=== PATIENT | male | born 1950 | race Caucasian/White ===

== ENCOUNTER 2016-08-02 17:52 | Emergency (ER) | payer MEDICARE, OTHER ==
[~2016-08-02] VITALS: Ht 193 cm; Wt 108.9 kg
[2016-08-02] MEDS ORDERED: FAMOTIDINE 20MG/2ML IV (PEPCID) IVP ONE (18:15)
[2016-08-02] MEDS ORDERED: methylPREDNISolone 125 MG (Solu-MEDROL) VIAL IVP ONE (18:15)
[2016-08-02] MEDS ORDERED: diphenhydrAMINE 50 MG/ML INJ (BENADRYL) IVP ONE (18:15)
[2016-08-02] MEDS ORDERED: METO-270 PO (18:17)
[2016-08-02] MEDS ORDERED: FOLI20CA PO (18:17)
[2016-08-02] MEDS ORDERED: ASPI-586 PO (18:17)
[2016-08-02] MEDS ORDERED: STATIN PO (18:17)
--- NOTE | 2016-08-02 18:53 | ED General ---
General Chief Complaint: Allergic Reaction Stated Complaint: HIVES Nursing Triage Note: PT CO OF HIVES SINCE 1700 YESTERDAY UNKNOWN REASON WHY, HAS TAKEN BENADRYL,CLAMINE LOTION, SODA AND VINEGAR BATH Nursing Sepsis Screen: No Definite Risk Source of Information: Patient Exam Limitations: No Limitations History of Present Illness Time Seen by Provider: 18:02 Initial Comments this 66-year-old gentleman presents to the emergency room with widespread hives since yesterday. He is unsure of the exposure that caused the reaction. He reports multiple possible exposures.He reports spraying some home defense pesticide spray at his house. He also has wrapped old carpet in plastic. He also ate a bowl of chili just prior to onset of hives. He is uncertain if any of these exposures caused them. He has taken multiple doses of Benadryl at home today without much improvement. His hives remain intensely pruritic. His last dose of Benadryl was about 3 hours ago. He has also tried using topical baking soda, vinegar, hydrocortisone cream, and calamine lotion. He denies use of any JENNIFER inhibitors or ARBS. He denies any throat swelling, tongue swelling, or difficulty breathing. Allergies and Home Medications Allergies Coded Allergies: No Known Drug Allergies (Unverified , 08/02/16) Home Medications Unknown Dose PO DAILY (Reported) Aspirin 81 Mg Tablet.dr 81 MG PO DAILY (Reported) Folic Acid 20 Mg Capsule Unknown Dose PO DAILY (Reported) Metoprolol Succinate 25 Mg Tab.er.24h 25 MG PO BID (Reported) Prednisone 10 Mg Tab #8 10 MG PO BID Prescribed by: WILLIAM WEINSTEIN on 08/02/161911 Constitutional: no symptoms reported EENTM: no symptoms reported Respiratory: no symptoms reported Cardiovascular: no symptoms reported Gastrointestinal: no symptoms reported Genitourinary: no symptoms reported Musculoskeletal: no symptoms reported Skin: see HPI Psychiatric/Neurological: No Symptoms Reported Hematologic/Lymphatic: No Symptoms Reported Past Toeirwm-Yyyphf-Bzbtej Hx Patient Social History Alcohol Use: Denies Use Recreational Drug Use: No Smoking Status: Never a Smoker Recent Foreign Travel: No Contact w/Someone Who Travel: No Recent Infectious Disease Expo: No Recent Hopitalizations: No Physical Abuse Screen: No Sexual Abuse: No Seasonal Allergies Seasonal Allergies: No Surgeries HX Surgeries: Yes Surgeries: Abdominal (partial colectomy), CABG Respiratory Hx Respiratory Disorders: No Cardiovascular Hx Cardiac Disorders: Yes Cardiac Disorders: Coronary Artery Disease, Hypertension Neurological Hx Neurological Disorders: No Reproductive System Hx Reproductive Disorders: No Genitourinary Hx Genitourinary Disorders: No Gastrointestinal Hx Gastrointestinal Disorders: No Musculoskeletal Hx Musculoskeletal Disorders: No Endocrine Hx Endocrine Disorders: No HEENT HX ENT Disorders: No Cancer Hx Cancer: Yes Cancer: Colon Psychosocial Hx Psychiatric Problems: No Integumentary HX Skin/Integumentary Disorder: No Family Medical History Significant Family History: Heart Disease, Diabetes Physical Exam Vital Signs Vital Sign - Last 12Hours 08/02/16 17:55 Temp 97.9 Pulse 84 Resp 18 B/P 168/121 Pulse Ox 99 Capillary Refill : Less Than 3 Seconds General Appearance: No Apparent Distress WD/WN HEENT: PERRL/EOMI Normal ENT Inspection Pharynx Normal Neck: Normal Inspection Respiratory: Lungs Clear Normal Breath Sounds No Accessory Muscle Use No Respiratory Distress Cardiovascular: Regular Rate, Rhythm No Edema No Murmur Gastrointestinal: Non Tender Soft Extremity: Normal Inspection No Pedal Edema Neurologic/Psychiatric: Alert Oriented x3 No Motor/Sensory Deficits Normal 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/Affect 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 II-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 Norm as Tested Skin: Warm/Dry Rash (large patches of hives scattered throughout the body) Progress/Results/Core Measures Results/Orders My Orders Orders-WILLIAM ARBOLEDA MD Diphenhydramine Injection (Benadryl Inje (08/02/16 18:15) Famotidine Injection (Pepcid Injection) (08/02/16 18:15) Methylprednisolone Sod Succ (Solu-Medrol (08/02/16 18:15) Monitor-Rhythm Ecg Trace Only (08/02/16 18:44) Medications Given in ED Current Medications Medications Dose Ordered Sig/Lucia Route Start Time Stop Time Status Last Admin Dose Admin Diphenhydramine HCl 25 mg ONCE ONCE IVP 08/02/16 18:15 08/02/16 18:16 DC 08/02/16 18:20 25 MG Famotidine 20 mg ONCE ONCE IVP 08/02/16 18:15 08/02/16 18:16 DC 08/02/16 18:20 20 MG Methylprednisolone Sodium Succinate 125 mg ONCE ONCE IVP 08/02/16 18:15 08/02/16 18:16 DC 1/14/17 18:20 125 MG Vital Signs/I&O Vital Sign - Last 12Hours 08/02/16 08/02/16 17:55 19:05 Temp 97.9 Pulse 84 87 Resp 18 18 B/P 168/121 Pulse Ox 99 99 Blood Pressure Mean: 137 Progress Note #1: Time: 18:52 Progress Note Hives are improving but his blood pressure is still rather elevated. Present blood pressure is 196/128. Patient reports this is white coat hypertension and happens when he goes to the doctor's office or the dentist. He reports his systolic blood pressure last week at home was 130. Patient has been asked to rest in the exam room while we monitor his blood pressure a little longer. Patient requested that we evaluate his cardiac rhythm. He was placed on the monitoring manager and found to be in sinus rhythm with frequent PVCs. There was no chest pain associated with his PVCs. Progress Note #2: Progress Note blood pressure improved a short time later without any further treatment. Patient was dismissed home in stable condition with improvement in hives. Patient has had problems with side effects of prednisone in the past. For this reason a low dose of 10 mg twice a day was prescribed. patient was encouraged to follow-up with his floor layer. Departure Impression Impression: Primary Impression: Hives Additional Impressions: PVCs (premature ventricular contractions) Hypertensive urgency Disposition: 01 HOME, SELF-CARE Condition: Improved Departure-Patient Inst. Referrals: CHRISTIAN WEINSTEIN MD (PCP/Family) Primary Care Physician Patient Instructions: Hives Add. Discharge Instructions: You may take Benadryl or generic diphenhydramine up to 50 mg every 4 hours as needed for itching and hives. Use prednisone as prescribed to prevent rebound hives over the next several days. Also use Pepcid or generic famotidine 20 mg twice daily for the next several days as well. If symptoms worsen, return to the emergency room. If you develop difficulty breathing or swelling of the tongue or throat presented to the emergency room as soon as possible or call 911. Evaluate your exposures for possible triggers and avoid those triggers in the future. Follow-up with your primary care provider and your floor layer as soon as possible regarding her PVCs and high blood pressure. You'll likely need adjustment to your medications. If your blood pressure remains high (top number greater than 160 or bottom number greater than 90), then increase your metoprolol to 50 mg twice daily. All discharge instructions reviewed with patient and/or family. Voiced understanding. Scripts Prednisone 10 Mg Tab10 Mg PO BID #8 TAB Prov:WILLIAM ARBOLEDA MD 08/02/16 WILLIAM ARBOLEDA MD Aug 02, 2016 18:53
[2016-08-02 19:05] VITALS: BP 170/106
[2016-08-02] MEDS ORDERED: PRD10T PO (19:12)
== END 2016-08-02 19:34 | disposition home or self-care (01) ==
LOC: EDUNIT# 17:52 → ER 17:53
DX: T78.40XA Allergy, unspecified, initial encounter (principal); L50.9 Urticaria, unspecified; I49.3 Ventricular premature depolarization; I16.0 Hypertensive urgency; Z79.82 Long term (current) use of aspirin; Z79.899 Other long term (current) drug therapy
CPT/HCPCS: 93041; 96374; 96375

== ENCOUNTER 2019-07-05 12:02 | Outpatient (CLI) | payer MEDICARE, OTHER ==
[~2019-07-05] VITALS: Ht 190.5 cm; Wt 108.5 kg
[~2019-07-05 12:02] MED LIST: ASPI-586 PO; FOLI20CA PO; METO-387 PO; PRD10T PO; STATIN PO
[2019-07-05] MEDS ORDERED: AMLO5TAB9 PO (12:20)
[2019-07-05] MEDS ORDERED: CARV12.53 PO (12:20)
[2019-07-05] MEDS ORDERED: ATOR40TA70 PO (12:20)
[2019-07-05 13:01] LABS: BASOPHILS % (AUTO) 0 % (0-10); EOSINOPHILS # (AUTO) 0.3 10^3/uL (0.0-0.3); EOSINOPHILS % (AUTO) 4 % (0-10); HEMATOCRIT 43 % (40-54); HEMOGLOBIN 15.2 G/DL (13.3-17.7); LYMPHOCYTES # (AUTO) 2.2 X 10^3 (1.0-4.0); LYMPHOCYTES % (AUTO) 31 % (12-44); MEAN CORPUSCULAR HEMOGLOBIN 31 PG (25-34); MEAN CORPUSCULAR HGB CONC 36 G/DL (32-36); MEAN CORPUSCULAR VOLUME 88 FL (80-99); MONOCYTES # (AUTO) 0.5 X 10^3 (0.0-1.0); MONOCYTES % (AUTO) 7 % (0-12); NEUTROPHILS # (AUTO) 4.2 X 10^3 (1.8-7.8); NEUTROPHILS % (AUTO) 59 % (42-75); PLATELET COUNT 157 10^3/uL (130-400); RED CELL DISTRIBUTION WIDTH 12.5 % (10.0-14.5); WHITE BLOOD COUNT 7.1 10^3/uL (4.3-11.0)
[2019-07-05 13:18] LABS: BUN/CREATININE RATIO 9; CALCIUM 9.2 MG/DL (8.5-10.1); CARBON DIOXIDE 22 MMOL/L (21-32); CHLORIDE 108 MMOL/L (98-107); CREATININE SERUM 1.13 MG/DL (0.60-1.30); GFR ESTIMATED > 60; GLUCOSE 107 MG/DL (70-105); POTASSIUM 4.1 MMOL/L (3.6-5.0); SODIUM 141 MMOL/L (135-145)
[2019-07-07] MEDS ORDERED: HYDR-3812 PO ×2 (11:44→11:45)
[2019-07-07] MEDS ORDERED: CEPH-507 PO (11:45)
== END 2019-07-05 12:45 | disposition home or self-care (01) ==
LOC: PREOP 12:02
PROVIDERS: ATTEND Otolaryngology Otolaryngology/Facial Plastic Surgery
DX: Z01.812 Encounter for preprocedural laboratory examination (principal); Z01.810 Encounter for preprocedural cardiovascular examination; J34.89 Other specified disorders of nose and nasal sinuses; Z85.9 Personal history of malignant neoplasm, unspecified
CPT/HCPCS: 36415; 80048; 85025; 87081; 93005